=== PATIENT | female | born 1980 | race Asian ===

== ENCOUNTER 2017-06-18 08:59 | Day surgery (SDC) | payer BC ==
[~2017-06-18 08:59] MED LIST: Buffered Lidocaine 0.9% SYRIN* 5 ML/SYR SYRINGE INTRADERM ONE; Sodium Citrate/Citric Acid* 15 ML UDC PO ONE
[2017-06-18] MEDS ORDERED: Sodium Citrate/Citric Acid* 15 ML UDC ONE (09:10)
[2017-06-18] MEDS ORDERED: Buffered Lidocaine 0.9% SYRIN* 5 ML/SYR SYRINGE ONE (09:10)
[2017-06-18] MEDS ORDERED: Propofol* 10 MG/ML 20 ML BTL IV PUSH ONE (10:41)
[2017-06-18] MEDS ORDERED: Lidocaine 2% PF * 5 ML VIAL ONE (10:41)
[2017-06-18] MEDS ORDERED: fentaNYL* 50 MCG/ML 2 ML VIAL (100 MCG VIAL) ONE (10:42)
[2017-06-18] MEDS ORDERED: Midazolam* 1 MG/ML 2 ML VIAL (2 MG) ONE (10:42)
[2017-06-18] MEDS ORDERED: Ketorolac INJ* 30 MG/ML 1 ML VIAL IV PRN (11:21)
[2017-06-18] MEDS ORDERED: DiMENhydriNATE IV* 50 MG/ML VIAL IV PUSH PRN (11:21)
[2017-06-18] MEDS ORDERED: fentaNYL* 50 MCG/ML 2 ML VIAL (100 MCG VIAL) IV PRN (11:21)
[2017-06-18 13:22] VITALS: BP 124/88
[2017-06-18] MEDS ORDERED: Silver Nitrate/Potassium Nitr* 1 EA STICK ONE (14:27)
--- NOTE | 2017-06-22 13:09 | OP ---
DATE OF OPERATION: 06/18/17 [facility] DATE OF : 82 SURGEON: Carly Arias MD ANESTHESIOLOGIST: Travon Hernandez DO ANESTHESIA: General endotracheal. PRE-OP DIAGNOSES: Menorrhagia and suspected submucosal fibroid. POST-OP DIAGNOSIS: Menorrhagia. OPERATIVE PROCEDURE: Dilatation and curettage, hysteroscopy. ESTIMATED BLOOD LOSS: 20 mL. URINE OUTPUT: 200 mL. IV FLUIDS: 750 mL Lactated Ringer's. MATERIALS TO LAB: Endometrial curettings. INDICATIONS: This patient is a 36-year-old 1, para 0, who presented to the office with complaint of worsening periods as well as pelvic pains. Ultrasound is significant for small fibroids with one about 2 cm in size that appeared to be submucosal in location. She was extensively counseled regarding her options and she desired to proceed with hysteroscopy, D and C, and hopeful resection of the submucosal fibroid. The patient and her had tried IVF previously. FINDINGS: Essentially normal-appearing uterine cavity with no substantial submucosal involvement of the fibroid. COMPLICATIONS: None. DESCRIPTION OF PROCEDURE: The risks, benefits, and alternatives were described to the patient and informed consent was obtained. The patient was taken to the operating room with IV running where general anesthesia was induced and found to be adequate. The patient was prepped and draped in the normal sterile fashion in the high lithotomy position and Sincere stirrups. A time-out was performed. The bladder was emptied. A bivalved speculum was placed in the vagina and a single- tooth tenaculum was placed on the anterior cervix. The cervix was then gently dilated using Hanks dilators to maximum size about 26. At that time, a MyoSure hysteroscope was advanced through the cervix and into the uterine cavity with saline running. The saline was managed with AquileFiltec fluid management system. On inspection of the uterine cavity, there were no visible abnormalities present. Only a small amount of possible impingement on the cavity near the fundus was visible, but this was minimal. Considering these findings, the procedure was discontinued after the curettage. The hysteroscope was removed. A gentle curettage with a medium Banjo curette was performed and the curetting were collected on Telfa. The tenaculum was then removed from the cervix and after holding pressure and applying some silver nitrate, there was good hemostasis present. The speculum was then removed and the patient was returned to the supine position. The patient tolerated the procedure well. Sponge, lap, and needle counts were correct x2. [id number]/[facility] #: [id number] [facility]
== END 2017-06-18 13:23 | disposition home or self-care (01) ==
LOC: OR 08:59
PROVIDERS: ATTEND Obstetrics & Gynecology
DX: N92.0 Excessive and frequent menstruation with regular cycle (principal)
CPT/HCPCS: 36415; 84702; 86850; 86900; 86901; 88305; A9270-GY; J2250; J2704; J3010